=== PATIENT | male | born 1950 | race Caucasian/White ===

== ENCOUNTER 2024-02-18 07:12 | Emergency (ER) | payer BC, SELFPAY ==
[2024-02-18] VITALS (52 sets, daily range): BP systolic 68–111; BP diastolic 34–54; PULSE 0–114; RESP 0–25; TEMP 37.7; O2SAT 84–96
--- NOTE | 2024-02-18 07:00 | RT.EKG_ITS ---
APPROVED REPORT Exam: Resting ECG Reason for Exam: altered Patient Location: E HR:111 bpm ECG Measurements Heart Rate 111 AXIS MI 167 P 56 QRSd 98 QRS -21 QT 387 T 209 QTc 527 Conclusion Sinus tachycardia...rate> 99 Low voltage, precordial leads...precordial leads <1.0mV Nonspecific T abnormalities, lateral leads...T <-0.10mV, I aVL V5 V6 Prolonged QT interval...QTc >500mS
--- NOTE | 2024-02-18 07:15 | DI.CT_ITS ---
Exam(s) CT HEAD WO EXAM: CT HEAD WO CLINICAL HISTORY: altered. TECHNIQUE: Imaging Protocol: Axial computed tomography images with coronal and sagittal reformatted images were created and reviewed COMPARISON: No exams were available for comparison FINDINGS: Ventricles and Extra axial spaces: Significant compression of the right lateral ventricle. Small rou nded focus of high 20 attenuation along the right frontal lateral convexity may represent an incident al meningioma with calcification versus focus of epidural hemorrhage. It measures 15 x 8 millimeters . Hemorrhage: Hemorrhage seen in subdural location surrounding the right cerebral hemisphere, extending from the level of the vertex through the skull base. There is also extension falx and tentorium. T he density is mainly high density, consistent with acute hemorrhage. There is some lower density see n in the frontal region, consistent with the mixed age subdural hematoma. The thickness of the subdu ral hematoma measures up to 15 millimeters. Cerebral parenchyma: Low-density consistent with diffuse edema seen in the right cerebral hemisphere. Loss of normal sulci. The left hemisphere shows some underlying white matter changes of small vess el disease. Midline shift: Marked right to left midline shift of 12 millimeters. Brainstem/Cerebellum: Normal. Calvarium: Normal. Visualized Paranasal sinuses:Clear. Mastoids: Clear. Soft Tissues: Unremarkable. ORBITS: Abnormal high density material within the left globe. PITUITARY: Not enlarged. IMPRESSION: Extensive right subdural hematoma, of mixed attenuation consistent hemorrhage of different ages, main ly acute. This causes midline shift and significant mass effect upon the right lateral ventricle. D iffuse edema in the right cerebral hemisphere. Additional round epidural focus along right frontal lateral skull could represent incidental meningio ma versus focal epidural hemorrhage. This does not exert significant mass effect. RADIATION DOSE DELIVERED: 908mGy.cm Total DLP DATA REPOSITORY: All CT scans at this facility are submitted to the National Radiology Data Registry (NRDR) Dose Index Registry (DIR) with the [employer] ([employer]). RADIATION OPTIMIZATION: All CT scans at this facility use at least one of these dose optimization te chniques: automated exposure control; mA and/or kV adjustment per patient size (includes targeted exa ms where dose is matched to clinical indication); or iterative reconstruction.
[2024-02-18 07:22] LABS: HCT 25.9 % (40.0-50.0); HGB 8.2 g/dL (13.5-17.5); MCH 31.7 pg (27.0-33.0); MCHC 31.7 % (32.0-36.0); MCV 100 fL (80-95); MPV 9.9 fL (8.0-11.0); Platelet Count 317 10^3/uL (130-400); RBC 2.59 10^6/uL (4.36-5.78); RDW 20.3 % (11.8-14.1); RDW-SD 71.7 fL; WBC 20.47 10^3/uL (4.4-10.8)
[2024-02-18] MEDS: Dextrose 50%-Water 25 GM/50 ML SYR IVP (07:25)
[2024-02-18 07:28] LABS: BE (Venous) -11 mmol/L (-2-3); HCO3 (Venous) 17 mmol/L (23-28); O2 Sat (Venous) 87 %; TCO2 (Venous) 18 mmol/L (24-29); pCO2 (Venous) 41 mmHg (41-51); pH (Venous) 7.23 (7.31-7.41); pO2 (Venous) 63 mmHg
[2024-02-18 07:30] LABS: Lactate 11.9 mmol/L (0.9-1.7)
[2024-02-18] MEDS: Lactated Ringers 500 ML 1000 ML IV (07:32)
[2024-02-18 07:44] LABS: ALT 112 U/L (16-63); AST 580 U/L (15-37); Albumin 1.3 g/dL (3.4-5.0); Alkaline Phosphatase 248 U/L (46-116); Anion Gap 18.8 mmol/L (3-11); BUN 10 mg/dL (7-18); Bilirubin, Total 0.59 mg/dL (0.2-1.0); CO2 18.2 mmol/L (21.0-32.0); CREATININE 1.6 mg/dL (0.70-1.30); Calcium 7.8 mg/dL (8.5-10.1); Chloride 103 mmol/L (98-107); Estimated GFR 44.65 (mL/min/1.73m2); Magnesium 1.6 mg/dL (1.8-2.4); Potassium 4.7 mmol/L (3.5-5.1); Sodium 140 mmol/L (136-145); Total Protein 6.9 g/dL (6.4-8.2)
--- NOTE | 2024-02-18 07:45 | ED.GENADUL_ITS ---
Discharge Plan Disposition Patient Disposition: Transfer-Acute Inpatient Care Specific Acute Inpt Facility: [facility] Condition: Critical Discharge Details Chief Complaint: AMS/LOC Clinical Impression: Intracranial hemorrhage, Midline shift of brain due to hematoma, Hypoglycemia Primary Care Provider: Unknown,Unknown ED Provider: Moises Riley Discharge Data Discharge Date/Time-TO BE ENTERED AT DEPARTURE: 02/18/24 11:14 HPI General Mode of arrival: ambulatory . Date/Time Provider Initiated Documentation: 02/18/24 07:45 . Limitations to Documentation: no limitations . Information obtained by: patient . HPI Narrative: 73yo male with multiple medical problems sent from [facility] and rehab for altered mental status. Apparently patient was acting normal at 3 AM. He was found to be unresponsive at 6 AM and subsequently developed gurgling respirations. He was found have a blood sugar in the 30s. Glucagon was administered. EMS was called. EMS arrived to find the patient with a blood sugar in the 40s, altered, hypoxic, and with hypotension. Nonrebreather oxygen was applied and pulse ox has improved to 90s. He arrives altered. General Stated Complaint: AMS/LOC MARVIN: 2 Review of Systems Unobtainable due to mental status Exam Const Orientation: not alert and not awake Limitations: altered mental status HENMT Head: normocephalic and atraumatic Eyes Pupils: PERRL (rt) Resp Auscultation: rales and no rhonchi Cardio Rate: tachycardic Rhythm: regular rhythm GI Palpation: soft, not firm, no guarding, no masses, not rigid and nontender Other: mulitple drains Skin General skin exam: no rashes or lesions noted Neuro General: not alert and not awake Extrem General: edema Laterality: bilateral (trace) Course Vital Signs Vital signs: Vital Signs Pulse 105 H 02/18/24 07:05 Respiratory Rate 16 02/18/24 07:05 Blood Pressure 85/34 L 02/18/24 07:05 Pulse Oximetry 88 L 02/18/24 07:05 Temperature 37.7 C H 02/18/24 07:25 Temperature Source Rectal 02/18/24 07:25 Pulse 112 H 02/18/24 07:25 Respiratory Rate 18 02/18/24 07:25 Respiratory Effort Labored 02/18/24 07:25 Respiratory Depth Deep 02/18/24 07:25 Respiratory Pattern Normal 02/18/24 07:25 Blood Pressure 101/41 L 02/18/24 07:25 Blood Pressure Position Supine 02/18/24 07:25 Pulse Oximetry 90 L 02/18/24 07:25 Oxygen Delivery Method Non-Rebreather 02/18/24 07:25 Oxygen Flow Rate 15 02/18/24 07:25 Lab/Test Results Lab/Test Results: 02/18/24 07:26 Blood Blood Culture - Pending 02/18/24 07:20 Blood Blood Culture - Pending Laboratory Tests Range/Units 02/18/24 02/18/24 07:10 07:13 VBG pH (7.31-7.41) 7.23 L VBG pCO2 (41-51) mmHg 41 VBG pO2 mmHg 63 VBG HCO3 (23-28) mmol/L 17 L VBG Total CO2 (24-29) mmol/L 18 L VBG O2 Saturation % 87 VBG Base Excess (-2-3) mmol/L -11 L VBG Lactate Cancelled 11.9 H* Procedures Central Line Placement Right IJ: Time Out Performed: Yes Patient Placed on Monitor/Pulse Ox: Yes MD Prep: mask, gown and gloves Central Line Prep: Chlorhexidine scrub Local Anesthetic: Lidocaine 1% Amount of anesthesia used (mL): 5 Central Line Lumen Inserted: triple Post Procedure: good blood return, all ports aspirated, flushed, capped and sutured in place with 3-0 nylon Patient Tolerated Procedure: well Additional Comments: Initial attempts made right subclavian unsuccessful. Could not obtain blood return. Converted to right IJ. Ultrasound utilized for procedure. Intubation Time out performed: Yes sedative: Ketamine Mg Given: 100 paralytic: Rocuronium Mg Given: 100 Laryngoscope: fiberoptic video scope ET Tube Size: 7.5 Tube Secured Depth (cm): 23 Tube Secured Location: lips Tube Placement Confirmation: visualized tube passing through cords, equal breath sounds bilaterally, no breath sounds over epigastrum and confirmation by capnometry Patient Tolerated Procedure: well Intubation Complications: none Medical Decision Making 89 --73-year-old male with multiple medical problems including history of acute infarction of the intestine, peritoneal abscess, alcoholic cirrhosis, portal hypertension, multiple sclerosis, malignant neoplasm of the ascending colon, hypertension, insulin-dependent diabetes, here with altered mental status and hypoglycemia. Patient has a blood sugar in the 30s. Stat IV access was obtained and he was given an amp of D50. Blood sugar did improve. Patient remained altered. I reviewed the patient's COLST form: Patient is currently saturating in the low 90s on nonrebreather. He is not a candidate for BiPAP at this time given altered mental status will continue supplemental oxygen. Patient is hypotensive. I will give crystalloid bolus and plan to reassess. Screening EKG was reviewed and interpreted by me: Please report, sinus tachycardia 111 bpm, normal axis, prolonged QT interval with QTc of 527, no STEMI. Initial labs reviewed and concerning for elevated lactate, elevated troponin, VBG shows acidosis. Patient is critically ill. Will obtain CT of the head to assess for acute life- threatening intracranial hemorrhage. 805 --CT was reviewed by me and concerning for intracranial hemorrhage. Awaiting stat radiology interpretation. 835 -- BP improved with initial bolus. CT shows mixed density subdural collection extending along the entirety of the right cerebral hemisphere, right tentorium, anterior posterior aspects of the right falxwith significant mass effect of shift 1.2 to 1.4 cm, diffuse loss of gomez-white differentiation in the right hemisphere concerning for large vessel occlusion versus edema from underlying subdural collection. Recommend CT angiogram for further assessment. Recommend neurosurgical consultation. Additional lenticular form hyperattenuation over the left frontal convexity, posteriorly, again this may represent meningioma versus additional site of epidural hemorrhage. Head of bed to 30 degrees. Will treat with keppra 2g IV, mannitol 20% 1 g/kg, and protamine -last Lovenox dose was 100 mg at 9 PM last night. I spoke with pharmacy who recommends protamine 50 mg at this time. Plan for emergent intubation. I have contacted [facility] transfer center request neurosurgical consultation and emergent transfer. Awaiting callback. [phone] --I spoke with Dr. Salter, [facility] neurosurgery, discussed ED presentation course, he recommends transfer to [facility] ED. No further recommendations on treatment at this time. Spoke with Dr. Baker, ED physician, she will accept patient in transfer. -- Patient again hypoglycemic and was given dextrose 25% push. -- Dr. Salter agrees with starting levophed to maintain SBP 100-110. Patient was intubated and did drop blood pressure during intubation. Levophed titrated rapidly and blood pressure stabilized. Central line placed. 1035 -- Post intubation / post central line xray interpreted by radiology: ET adequate placement. Central line adequate placement. No ptx. Repeat blood sugar 64. Plan to give repeat dose of dextrose 25% bolus. Critical care air transport team here. Report were provided. Care transition to transport team. Lab Data Lab results reviewed: Yes I reviewed the patient's lab results. Labs: 02/18/24 07:26 Blood Blood Culture - Pending 02/18/24 07:20 Blood Blood Culture - Pending Laboratory Tests Range/Units 02/18/24 02/18/24 02/18/24 07:10 07:13 07:54 WBC (4.4-10.8) 10^3/uL 20.47 H RBC (4.36-5.78) 10^6/uL 2.59 L Hgb (13.5-17.5) g/dL 8.2 L Hct (40.0-50.0) % 25.9 L MCV (80-95) fL 100 H MCH (27.0-33.0) pg 31.7 MCHC (32.0-36.0) % 31.7 L RDW (11.8-14.1) % 20.3 H Plt Count (130-400) 10^3/uL 317 MPV (8.0-11.0) fL 9.9 Immature Gran % % 0.0 Neutrophils % % 74.0 Band Neutrophils % % 15 Lymphocytes % % 4.0 Monocytes % % 3.0 Eosinophils % % 0.0 Basophils % % 0.0 Metamyelocytes % 3 Myelocytes % 1 Promyelocytes % 0 Nucleated RBC % (0.0-0.3) % 0.0 Absolute Neutrophils (1.2-6.7) 10^3/uL 18.22 H Absolute Lymphocytes (1.2-3.4) 10^3/uL 0.82 L Absolute Monocytes (0.1-0.8) 10^3/uL 0.61 Absolute Eosinophils (0.0-0.7) 10^3/uL 0.00 Absolute Basophils (0.0-0.2) 10^3/uL 0.00 RBC Morphology See Below Polychromasia Present Anisocytosis 1+ PT (9.1-11.1) sec 22.0 H INR (0.9-1.1) 2.4 H APTT (23.6-32.8) sec 54.6 H VBG pH (7.31-7.41) 7.23 L VBG pCO2 (41-51) mmHg 41 VBG pO2 mmHg 63 VBG HCO3 (23-28) mmol/L 17 L VBG Total CO2 (24-29) mmol/L 18 L VBG O2 Saturation % 87 VBG Base Excess (-2-3) mmol/L -11 L VBG Lactate Cancelled 11.9 H* Sodium (136-145) mmol/L 140 Potassium (3.5-5.1) mmol/L 4.7 Chloride (98-107) mmol/L 103 Carbon Dioxide (21.0-32.0) mmol/L 18.2 L Anion Gap (3-11) mmol/L 18.8 H BUN (7-18) mg/dL 10 Creatinine (0.70-1.30) mg/dL 1.6 H Est GFR (CKD-EPI 2020) (mL/min/1.73m2) 44.65 Glucose (74-106) mg/dL 25 L* Calcium (8.5-10.1) mg/dL 7.8 L Magnesium (1.8-2.4) mg/dL 1.6 L Total Bilirubin (0.2-1.0) mg/dL 0.59 AST (15-37) U/L 580 H ALT (16-63) U/L 112 H Alkaline Phosphatase (46-116) U/L 248 H Troponin I (< or =60) ng/L 352 H* NT-Pro-B Natriuret Pep (<300) pg/mL 11182 H Total Protein (6.4-8.2) g/dL 6.9 Albumin (3.4-5.0) g/dL 1.3 L Urine Color (Yellow) Urine Clarity (Clear) Urine pH (5-8) Ur Specific [place] (1.005-1.025) Urine Protein (Neg-Trace) mg/dL Urine Ketones (Negative) mg/dL Urine Blood (Negative) Urine Nitrite (Negative) Urine Bilirubin (Negative) Urine Urobilinogen (Up to 0.2) mg/dL Ur Leukocyte Esterase (Negative) Urine RBC (0-2) HPF Urine WBC (0-5) HPF Ur Epithelial Cells (Negative) HPF Urine Crystals (Negative) HPF Urine Bacteria (Negative) HPF Urine Casts (Negative) LPF Urine Mucus (Negative) Ur Culture Indicated? Urine Glucose (Negative) mg/dL COVID-19 Source Nasopharynx SARS-CoV-2 (PCR) (Negative) Negative Influenza Type A (PCR) (Negative) Negative Influenza Type B (PCR) (Negative) Negative RSV (PCR) (Negative) Negative Range/Units 02/18/24 08:25 WBC (4.4-10.8) 10^3/uL RBC (4.36-5.78) 10^6/uL Hgb (13.5-17.5) g/dL Hct (40.0-50.0) % MCV (80-95) fL MCH (27.0-33.0) pg MCHC (32.0-36.0) % RDW (11.8-14.1) % Plt Count (130-400) 10^3/uL MPV (8.0-11.0) fL Immature Gran % % Neutrophils % % Band Neutrophils % % Lymphocytes % % Monocytes % % Eosinophils % % Basophils % % Metamyelocytes % Myelocytes % Promyelocytes % Nucleated RBC % (0.0-0.3) % Absolute Neutrophils (1.2-6.7) 10^3/uL Absolute Lymphocytes (1.2-3.4) 10^3/uL Absolute Monocytes (0.1-0.8) 10^3/uL Absolute Eosinophils (0.0-0.7) 10^3/uL Absolute Basophils (0.0-0.2) 10^3/uL RBC Morphology Polychromasia Anisocytosis PT (9.1-11.1) sec INR (0.9-1.1) APTT (23.6-32.8) sec VBG pH (7.31-7.41) VBG pCO2 (41-51) mmHg VBG pO2 mmHg VBG HCO3 (23-28) mmol/L VBG Total CO2 (24-29) mmol/L VBG O2 Saturation % VBG Base Excess (-2-3) mmol/L VBG Lactate Sodium (136-145) mmol/L Potassium (3.5-5.1) mmol/L Chloride (98-107) mmol/L Carbon Dioxide (21.0-32.0) mmol/L Anion Gap (3-11) mmol/L BUN (7-18) mg/dL Creatinine (0.70-1.30) mg/dL Est GFR (CKD-EPI 2020) (mL/min/1.73m2) Glucose (74-106) mg/dL Calcium (8.5-10.1) mg/dL Magnesium (1.8-2.4) mg/dL Total Bilirubin (0.2-1.0) mg/dL AST (15-37) U/L ALT (16-63) U/L Alkaline Phosphatase (46-116) U/L Troponin I (< or =60) ng/L NT-Pro-B Natriuret Pep (<300) pg/mL Total Protein (6.4-8.2) g/dL Albumin (3.4-5.0) g/dL Urine Color (Yellow) Dark Yellow Urine Clarity (Clear) Clear Urine pH (5-8) 5.0 Ur Specific [place] (1.005-1.025) 1.020 Urine Protein (Neg-Trace) mg/dL 30 H Urine Ketones (Negative) mg/dL Trace H Urine Blood (Negative) Trace-intact H Urine Nitrite (Negative) Negative Urine Bilirubin (Negative) Small H Urine Urobilinogen (Up to 0.2) mg/dL 0.2 Ur Leukocyte Esterase (Negative) Negative Urine RBC (0-2) HPF 3-5 H Urine WBC (0-5) HPF 0-2 Ur Epithelial Cells (Negative) HPF Few Urine Crystals (Negative) HPF Few Amorphous Urine Bacteria (Negative) HPF Negative Urine Casts (Negative) LPF 3-5 Fine Granular Urine Mucus (Negative) Moderate Ur Culture Indicated? No Urine Glucose (Negative) mg/dL Negative COVID-19 Source SARS-CoV-2 (PCR) (Negative) Influenza Type A (PCR) (Negative) Influenza Type B (PCR) (Negative) RSV (PCR) (Negative) Quality:SDOH Health Related Social Needs: No Data to Display Critical Care Time Critical Care Time Critical Care Time: Yes Total Critical Care Time: 80 Attestation: I spent greater than 80 minutes addressing this patient's immediate life threats. Please see MDM section of note. This time was spent engaged in work directly related to the patient's care, exclusive of separate procedures, and failure to initiate these interventions would have likely resulted in clinically significant or life threatening deterioration in the patient's condition. PFSH All Active Problems (Updated 02/22/24 @ 08:06 by Moises Riley MD) Hypoglycemia (Acute) Midline shift of brain due to hematoma (Acute) Intracranial hemorrhage (Acute) Social History Smoking risk assessment performed?: No Alcohol Intake: former Housing: care home Do you feel safe at home: Yes Do you feel safe in your relationship?: Yes
[2024-02-18 07:46] LABS: Glucose 25 mg/dL (74-106); Troponin I 352 ng/L (< or =60)
--- NOTE | 2024-02-18 07:50 | DI.RAD_ITS ---
Exam(s) XR PORTABLE CHEST AP EXAM: XR PORTABLE CHEST AP CLINICAL HISTORY: altered, hypoxia TECHNIQUE: 2D digital imaging was performed. Portable semi-erect. COMPARISON: No exams were available for comparison FINDINGS: -exam is limited by-under penetration and poor inspiration. LUNGS: There is increased density of the right chest compared to the left which could indicate layeri ng pleural effusion. Increased density in the retrocardiac region may represent pneumonia versus sig nificant atelectasis. HEART: Normal size. AORTA: Normal diameter. BONES: Unremarkable for age. Soft tissues: Pigtail catheter seen at the right lung base. IMPRESSION: Left lower lobe infiltrate versus significant atelectasis. pigtail catheter at the right lung base may be draining a pleural effusion. DATA REPOSITORY: RADIATION DOSE DELIVERED:
--- NOTE | 2024-02-18 08:02 | DI.VRAD_ITS ---
PROCEDURE INFORMATION: Exam: XR Chest Exam date and time: 02/18/2024 7:46 AM Age: 73 years old Clinical indication: Patient HX: Hypoxia, altered TECHNIQUE: Imaging protocol: Radiologic exam of the chest. Views: 1 view. COMPARISON: No relevant prior studies available. FINDINGS: Tubes, catheters and devices: Right pigtail catheter. Lungs: Left lung base/retrocardiac opacification. Pleural spaces: Blunting of the right costophrenic angle. Blunting of the left costophrenic angle. Heart/Mediastinum: Unremarkable. No cardiomegaly. Bones/joints: Diffuse degenerative change of the visualized osseous structures. IMPRESSION: 1. Right pigtail pleural catheter with likely residual small pleural effusion. 2. Retrocardiac/left lung base opacification with parapneumonic effusion. Correlate with clinical signs and symptoms of infection. Dictated and Authenticated by: Sloan Hines MD. Ordering:KYM De Leon MD
[2024-02-18 08:07] LABS: Anisocytosis 1+; Diff Comment Manual Differential; Polychromasia Present
[2024-02-18 08:08] LABS: Absolute Lymphocyte Count 0.82 10^3/uL (1.2-3.4); Absolute Monocyte Count 0.61 10^3/uL (0.1-0.8); Absolute Neutrophil Count 18.22 10^3/uL (1.2-6.7); Bands % 15 %; Metamyelocytes % 3
[2024-02-18 08:09] LABS: Myelocytes % 1; Promyelocytes % 0
--- NOTE | 2024-02-18 08:26 | DI.VRAD_ITS ---
Addendum created by Sloan Hines DO on 02/18/2024 8:46:04 AM EDT: ADDENDUM: The above findings and impression were discussed with Dr. Riley on 02/18/2024 at 7:45 a.m. Initial report created on 02/18/2024 8:25:51 AM EDT: PROCEDURE INFORMATION: Exam: CT Head Without Contrast Exam date and time: 02/18/2024 8:02 AM Age: 73 years old Clinical indication: Stroke-like symptoms; Altered mental status/memory loss TECHNIQUE: Imaging protocol: Computed tomography of the head without contrast. Other technique: STROKE PROTOCOL was implemented. COMPARISON: No relevant prior studies available. FINDINGS: Brain: Mixed density right subdural collection extending along the entirety of the right cerebral hemisphere, extending along the right tentorium and anterior posterior aspects of the right falx. There is diffuse loss of gomez-white differentiation of the right cerebral hemisphere. There is loss of normal sulci. Significant midline shift is noted with about 1.2 cm leftward shift. Additional focus of hyperattenuation is appreciated over the left frontal convexity with a lenticular form shape and broad-based dural attachment suggestive of meningioma versus additional site of hemorrhage which would be epidural in classification, measuring about 9.0 x 19.1 mm (series 8, image 19). Cerebral ventricles: There is near-complete obliteration of the right ventricular system, with only small portion of the anterior horn of the right lateral ventricle appears patent. Paranasal sinuses: Visualized sinuses are unremarkable. No fluid levels. Mastoid air cells: Visualized mastoid air cells are well aerated. Bones: Unremarkable. No acute fracture. Soft tissues: Unremarkable. IMPRESSION: 1. Mixed density subdural collection extending along the entirety of the right cerebral hemisphere, right tentorium, anterior and posterior aspects of the right falx with significant mass-effect as above. Recommend neurosurgical consultation. 2. Diffuse loss of gomez-white differentiation of the right hemisphere concerning for large vessel occlusion versus edema from overlying subdural collection. Recommend CT angiogram for further assessment. Recommend neurosurgical consultation. 3. Additional lenticular form hyperattenuation over the left frontal convexity, posteriorly, again this may represent meningioma versus additional site of epidural hemorrhage. Dictated and Authenticated by: Sloan Hines MD. Ordering:KYM De Leon MD
[2024-02-18] MEDS: levETIRAcetam 2,000 MG in Normal Saline 100 ML 400 MG IVPB (08:30)
[2024-02-18] MEDS: Dextrose 25%-Water 10 ML SYR IVP ×2 (08:31→10:40)
[2024-02-18 08:39] LABS: Bilirubin Small (Negative); Blood Trace-intact (Negative); Clarity Clear (Clear); Glucose Negative (Negative); Ketones Trace mg/dL (Negative); Leukocyte Esterase Negative (Negative); Nitrite Negative (Negative); Urobilinogen 0.2 mg/dL (Up to 0.2)
[2024-02-18 08:40] LABS: COVID-19 PCR Negative (Negative); Influenza A PCR Negative (Negative); Influenza B PCR Negative (Negative); RSV PCR Negative (Negative)
[2024-02-18 08:51] LABS: INR 2.4 (0.9-1.1); PTT Activated 54.6 sec (23.6-32.8)
[2024-02-18 09:15] LABS: Bacteria Negative HPF (Negative); Crystals Few Amorphous HPF (Negative); Epithelial Cells Few HPF (Negative); Mucus Moderate (Negative); WBC 0-2 HPF (0-5)
[2024-02-18 09:16] LABS: C & S Indicated? No; Casts 3-5 Fine Granular LPF (Negative)
[2024-02-18 10:10] LABS: Source Nasopharynx
--- NOTE | 2024-02-18 10:34 | DI.RAD_ITS ---
Exam(s) XR PORTABLE CHEST AP POST LINE EXAM: XR PORTABLE CHEST AP POST LINE CLINICAL HISTORY: post intubation TECHNIQUE: 2D digital imaging was performed. COMPARISON: No exams were available for comparison FINDINGS: Endotracheal tube has been inserted which lies at the level of the aortic arch. Right-sided internal jugular catheter tip lies in the SVC. LUNGS: No pneumothorax. Pigtail catheter again noted at right lower lung field. Bilateral pleural e ffusions are visible. Increased densities are again noted at the left retrocardiac region. HEART: Normal size. AORTA: Normal diameter. BONES: Unremarkable for age. Soft tissues: Unremarkable monitoring device over chest. IMPRESSION: Satisfactory placement of endotracheal tube and central line. DATA REPOSITORY: RADIATION DOSE DELIVERED:
[2024-02-18] MEDS: Ketamine 500 MG/10 ML VIAL 100 MG IVP (10:56)
[2024-02-18] MEDS: Norepinephrine in D5W 8 MG/250 ML BAG 22.5 MG IV (10:59)
[2024-02-18] MEDS: PROPOFOL 1,000 MG/100 ML BTL 3.048 MG IVPB (11:00)
--- NOTE | 2024-02-19 01:27 | NUR.NOTE ---
Postive blood culture from lab Aerobics bottle positive; gram stain shows GRAM POSITIVE COCCI IN CHAINS. Results given to Dr. Bobby Baird.
--- NOTE | 2024-02-20 15:04 | NUR.NOTE ---
Accessed chart to find the name of the name of the accepting physician at [facility] [place] for transfer. Nursing Note:
--- NOTE | 2024-02-22 09:09 | NUR.NOTE ---
Nursing Note: PT chart accessed to fax positive blood cultures to transferring facility.
== END 2024-02-18 11:14 | disposition short-term general hospital (02) ==
LOC: ER 08:36
PROVIDERS: Emergency Provider Student in an Organized Health Care Education/Training Program
DX: I62.01 Nontraumatic acute subdural hemorrhage (principal); R94.31 Abnormal electrocardiogram [ECG] [EKG]; E11.65 Type 2 diabetes mellitus with hyperglycemia; K55.069 Acute infarction of intestine, part and extent unspecified; K70.30 Alcoholic cirrhosis of liver without ascites; G35 Multiple sclerosis; I10 Essential (primary) hypertension
CPT/HCPCS: 31500; 36415; 36573; 71045; 80053; 82805; 82962; 87040; 87077; 87637; 93005; 96361; 96365; 99291; 99292; 70450; 81003; 81015; 83605; 83735; 83880; 84484; 85025; 85610; 85730; 87186; 93010; J1953; J2704; J2720